=== PATIENT | female | born 1935 | race Caucasian/White ===

== ENCOUNTER 2022-04-03 15:15 | Inpatient (IN) | payer OTHER ==
[~2022-04-03] VITALS: Ht 167.6 cm; Wt 113.6 kg
[~2022-04-03 15:15] MED LIST: CLON0.5T10; GAB100C PO; INSU31MI32; LEVO75TA6; SITA50TA28 PO; VALS1TAB58 PO
[2022-04-03] MEDS ORDERED: ASPirin 81 mg TAB PO ONE (15:30)
[2022-04-03 15:57] LABS: Basophils # (auto) 0.1 10 ^3/uL (0-0.2); Basophils % (auto) 1.1 % (0.0-2.0); Eosinophils # (auto) 0.2 10 ^3/uL (0-0.8); Eosinophils % (auto) 3.3 % (0.0-7.0); Hematocrit 47.5 % (36.0-46.0); Hemoglobin 16.2 g/dL (12.2-16.2); Lymphocytes # (auto) 1.3 10 ^3/uL (0.4-5.4); Mean Corpuscular Hemoglobin 31.5 pg (28.0-32.0); Mean Corpuscular Volume 92.5 fL (80.0-100.0); Monocytes # (auto) 0.5 10 ^3/uL (0-1.3); Monocytes % (auto) 9.4 % (0.0-12.0); Neutrophils # (auto) 3.3 10 ^3/uL (1.6-8.6); Neutrophils % (auto) 62.2 % (37.0-80.0); Nucleated Red Blood Cells % 0.2 %; Red Blood Cells 5.14 10^6/uL (4.0-5.20); Red Cell Distribution Width 12.8 % (11.8-14.3); White Blood Cell 5.4 10^3/uL (4.4-10.8)
[2022-04-03 16:05] LABS: Albumin 3.8 g/dL (3.4-5.0); BUN/Creatinine Ratio 23.6; Calcium 10.2 mg/dL (8.5-10.1); Magnesium 1.4 mg/dL (1.6-2.6)
[2022-04-03 16:08] LABS: Bilirubin, Total 0.8 mg/dL (0.2-1.0); Total Protein 6.9 g/dL (6.4-8.2)
[2022-04-03] MEDS ORDERED: MORPHINE SULFATE INJ 2 MG/ml SYRG IV PRN (19:15)
[2022-04-03] MEDS ORDERED: NITROGLYCERIN 0.4 MG SL TAB SL PRN (19:15)
[2022-04-03] MEDS ORDERED: PANTOPRAZOLE 40 MG/10 ML VIAL INJ IV ONE (19:15)
[2022-04-03] MEDS ORDERED: ACETAMINOPHEN 325 MG TAB PO PRN (19:15)
[2022-04-03] MEDS ORDERED: SODIUM CHLORIDE 0.9% 1,000 ML IV SCH (19:15)
[2022-04-03 19:33] LABS: Cholesterol 190 mg/dL (< 200)
[2022-04-03 19:36] LABS: HDL Cholesterol 46 mg/dL (40-59); LDL Cholesterol 111 mg/dL (< 100); Triglycerides 176 mg/dL (< 150)
[2022-04-03] MEDS: MAGNESIUM SULFATE 1GM/100ML 100 ML IV SCH (23:57)
[2022-04-04 00:02] LABS: Urine Bacteria NONE SEEN /hpf (None Seen); Urine Blood Negative /uL (Negative); Urine Mucus FEW (None Seen); Urine Specific Gravity 1.019 (1.001-1.035); Urine WBC 76 /hpf (0 - 5)
[2022-04-04] MEDS ORDERED: MAGNESIUM SULFATE 1GM/100ML 200 ML IV ONE (01:00)
[2022-04-04] MEDS: MAGNESIUM SULFATE 1GM/100ML 100 ML IV SCH ×2 (01:01→02:17)
[2022-04-04 05:48] LABS: Basophils # (auto) 0 10 ^3/uL (0-0.2); Basophils % (auto) 0.7 % (0.0-2.0); Eosinophils # (auto) 0.1 10 ^3/uL (0-0.8); Eosinophils % (auto) 1.6 % (0.0-7.0); Hemoglobin 15.4 g/dL (12.2-16.2); Lymphocytes # (auto) 1.1 10 ^3/uL (0.4-5.4); Lymphocytes % (auto) 16.8 % (10.0-50.0); Mean Corpuscular Hemoglobin 30.7 pg (28.0-32.0); Mean Corpuscular Hgb Conc. 33.4 g/dL (32.0-36.0); Mean Corpuscular Volume 92.1 fL (80.0-100.0); Monocytes # (auto) 0.6 10 ^3/uL (0-1.3); Monocytes % (auto) 9.8 % (0.0-12.0); Neutrophils # (auto) 4.6 10 ^3/uL (1.6-8.6); Neutrophils % (auto) 71.1 % (37.0-80.0); Nucleated Red Blood Cells % 0.1 %; Red Cell Distribution Width 12.6 % (11.8-14.3); White Blood Cell 6.4 10^3/uL (4.4-10.8)
[2022-04-04 06:08] LABS: Potassium 3.9 mmol/L (3.5-5.1)
[2022-04-04 06:18] LABS: Albumin 3.6 g/dL (3.4-5.0); BUN/Creatinine Ratio 24.7; Calcium 9.5 mg/dL (8.5-10.1); Total Protein 6.9 g/dL (6.4-8.2)
[2022-04-04 09:00] VITALS: BP 181/91
[2022-04-04] MEDS: PANTOPRAZOLE 40 MG/10 ML VIAL INJ IV SCH ×2 (09:58→10:00)
[2022-04-04] MEDS: ENOXAPARIN SOD 40 MG/0.4 ML SYRINGE SC SCH ×2 (09:59→10:00)
[2022-04-04] MEDS: ASPirin 81 mg TAB PO SCH ×2 (09:59→10:00)
== END 2022-04-04 11:56 | disposition left against medical advice (07) | DRG 311 ==
LOC: ER 15:15 → TELE 19:08
PROVIDERS: ADMIT Nurse Practitioner Family; ATTEND Hospitalist
DX: I24.9 Acute ischemic heart disease, unspecified (principal); Z68.41 Body mass index [BMI] 40.0-44.9, adult; I10 Essential (primary) hypertension; E83.42 Hypomagnesemia; E66.01 Morbid (severe) obesity due to excess calories; Z20.822 Contact with and (suspected) exposure to COVID-19; E11.9 Type 2 diabetes mellitus without complications; Z53.29 Procedure and treatment not carried out because of patient's decision for other reasons; E83.52 Hypercalcemia; Z79.4 Long term (current) use of insulin; Z79.84 Long term (current) use of oral hypoglycemic drugs; Z83.3 Family history of diabetes mellitus; Z90.710 Acquired absence of both cervix and uterus; Z82.49 Family history of ischemic heart disease and other diseases of the circulatory system
CPT/HCPCS: 36415; 71046; 80053; 80061; 81001; 83036; 83735; 83880; 84443; 84484; 85025; 87426; 93005; 96361; 96365; 96375; C9113; G0378